=== PATIENT | female | born 1930 | race Caucasian/White ===

== ENCOUNTER → 2016-08-15 | Outpatient (CLI) | payer MEDICARE ==
[~2016-08-15] MED LIST: B-121000 MCG PO; BACTRIM DS 8001 TAB PO; DEMADEX 20MG20 M1 PO; LASIX 20MG TABL20 MG PO; SYNTHROID0.05 MG/TA PO; VITAMIN D1000 IU PO
[2016-08-15 12:47] LABS: BASO % 0.3 % (0.0-2.0); EOS # 0.2 (0.0-0.7); EOS % 2.7 % (0-4.0); GRAN # 4.3 (1.4-6.5); GRAN % 68.1 % (42.2-75.2); HEMATOCRIT 29.1 % (37.0-47.0); HEMOGLOBIN 9.4 g/dl (12.5-16.0); LYMPH % 16.2 % (20.0-51.0); MEAN CELL VOLUME 116 fl (80.0-100.0); MEAN CORPUSCULAR HEMOGLOBIN 38 pg (27.0-31.0); MEAN CORPUSCULAR HGB CONC 32 g/dl (33.0-37.0); MEAN PLATELET VOLUME 13.6 fl (7.4-10.4); MONO # 0.8 (0.1-0.6); MONO % 12.4 % (1.7-9.3); PLATELET COUNT 189 K/mm3 (130-400); REDCELL DISTRIBUTION WIDTH-CV 15.3 % (11.5-14.5); WHITE BLOOD COUNT 6.3 K/mm3 (4.8-10.8)
[2016-08-15 12:51] LABS: PH 5 (5-8); SQUAMOUS EPITHELIAL 0-2 /hpf; URINE APPEARANCE Hazy; URINE BACTERIA Many /hpf; URINE BILIRUBIN Negative (NEGATIVE); URINE BLOOD 1+ (NEGATIVE); URINE COLOR Yellow; URINE GLUCOSE Negative (NEGATIVE); URINE KETONE Negative (NEGATIVE); URINE UROBILINOGEN Negative (NEGATIVE); URINE WBC >50 /hpf
[2016-08-15 13:24] LABS: ADJUSTED CALCIUM 9.8 mg/dL (8.4-10.2); ALBUMIN 3.3 gm/dL (3.5-5.0); BILIRUBIN,TOTAL 0.8 mg/dL (0.0-1.0); CALCIUM 9.2 mg/dL (8.4-10.2); CREATININE, serum 0.82 mg/dL (0.52-1.25); POTASSIUM 4.6 mmol/L (3.4-5.0); TOTAL PROTEIN 5.7 gm/dL (6.4-8.2)
[2016-08-15 13:40] LABS: THYROID STIMULATING HORMONE 5.07 uIU/mL (0.465-4.680)
== END ==
LOC: COL.RAD 10:55
PROVIDERS: Family Medicine
DX: K44.9 Diaphragmatic hernia without obstruction or gangrene (principal); R60.0 Localized edema; N39.0 Urinary tract infection, site not specified; M85.80 Other specified disorders of bone density and structure, unspecified site

== ENCOUNTER 2016-08-19 07:28 | Observation (INO) | payer MEDICARE ==
[~2016-08-19] VITALS: Ht 160 cm; Wt 72.1 kg
[2016-08-19] MEDS ORDERED: LASIX 20MG TABL20 MG PO (07:51)
[2016-08-19] MEDS ORDERED: BACTRIM DS 8001 TAB PO (07:52)
[2016-08-19] MEDS ORDERED: SYNTHROID0.05 MG/TA PO (07:53)
[2016-08-19] MEDS ORDERED: B-121000 MCG PO (07:54)
[2016-08-19] MEDS ORDERED: VITAMIN D1000 IU PO (07:55)
[2016-08-19 08:08] VITALS: BP 104/61; PULSE 74; TEMP 98
[2016-08-19 10:50] LABS: CALCIUM 9.2 mg/dL (8.4-10.2); CREATININE, serum 0.94 mg/dL (0.52-1.25); POTASSIUM 4.1 mmol/L (3.4-5.0)
[2016-08-19 11:09] VITALS: BP 118/49; PULSE 62
[2016-08-19 13:44] LABS: CALCIUM 9.3 mg/dL (8.4-10.2); CREATININE, serum 1.07 mg/dL (0.52-1.25); POTASSIUM 3.9 mmol/L (3.4-5.0)
[2016-08-19] MEDS ORDERED: DEMADEX 20MG20 M1 PO (13:53)
== END 2016-08-19 14:23 | disposition home or self-care (01) ==
LOC: MEDICAL 07:28
PROVIDERS: Internal Medicine Interventional Cardiology
DX: R60.0 Localized edema (principal); R06.02 Shortness of breath; E03.9 Hypothyroidism, unspecified; Z79.899 Other long term (current) drug therapy
CPT/HCPCS: G0378; J1940; J7060

== ENCOUNTER → 2018-05-01 | Outpatient (CLI) | payer MEDICARE | LOC: COL.RAD 14:27 | DX: K44.9 Diaphragmatic hernia without obstruction or gangrene (principal); J18.1 Lobar pneumonia, unspecified organism; R91.8 Other nonspecific abnormal finding of lung field | CPT/HCPCS: Q9967 ==

== ENCOUNTER 2018-05-04 12:31 | Outpatient (RCR) | payer MEDICARE ==
[~2018-05-04] VITALS: Ht 160 cm; Wt 63.5 kg
[2018-05-04] VITALS (8 sets, daily range): BP systolic 104–124; BP diastolic 53–60; PULSE 52–69; TEMP 97.6
== END 2018-05-04 17:10 | disposition home or self-care (01) ==
LOC: EUO 12:31
DX: D53.9 Nutritional anemia, unspecified (principal); D46.9 Myelodysplastic syndrome, unspecified
CPT/HCPCS: J7050; P9016

== ENCOUNTER → 2018-07-16 | Outpatient (CLI) | payer MEDICARE | LOC: COL.RAD 10:30 | DX: K44.9 Diaphragmatic hernia without obstruction or gangrene (principal); R91.1 Solitary pulmonary nodule ==

== ENCOUNTER 2018-10-12 12:18 | Outpatient (RCR) | payer MEDICARE ==
[2018-10-12] VITALS (10 sets, daily range): BP systolic 103–129; BP diastolic 50–82; PULSE 62–82; TEMP 97.9–98
[~2018-10-12] VITALS: Ht 160 cm; Wt 62.4 kg
--- NOTE | 2018-10-12 17:30 | NUR ---
2 units PRBC's complete. IV discontinued intact.
== END 2018-10-12 17:35 | disposition home or self-care (01) ==
LOC: EUO 12:18
DX: D46.1 Refractory anemia with ring sideroblasts (principal)
CPT/HCPCS: J7050; P9016